=== PATIENT | female | born 1955 | race Caucasian/White ===

== ENCOUNTER 2022-12-22 11:22 | Emergency (ER) | payer BC, SELFPAY ==
[2022-12-22 11:29] VITALS: BP 136/90; PULSE 76; RESP 12; TEMP 36.1; O2SAT 98
--- NOTE | 2022-12-22 11:39 | ED.EXTPRO ---
HPI - Extremity Problem General Chief complaint: Extremity Injury, Upper Stated complaint: left hand injury Time Seen by Provider: 12/22/22 11:30 Source: patient and RN notes reviewed Mode of arrival: ambulatory Limitations: no limitations History of Present Illness HPI Narrative: Patient states that she pushed herself off a chair last evening and had significant pain in her left thumb at the base in the area of her CMC joint. She says she has had pain in that joint for many years. She does knitting at home as a repetitive type movement. She denies any fever chills. She does have a history of gout but states the gout has always been in her great toe. Her GI doctor told her not to take NSAIDs on a regular basis. MD Complaint: extremity pain Onset (ago): day(s) (1) Pain Consistency: constant Location: right and upper extremity Quality: stabbing, aching and constant Radiation: none Relieving factors: nothing Exacerbating factors: range of motion and palpation Associated symptoms: denies other symptoms Related Data Home Medications Medication Instructions Recorded Confirmed amlodipine 2.5 mg tablet 2.5 mg PO DAILY 12/22/22 12/22/22 atorvastatin 10 mg tablet 10 mg PO DAILY 12/22/22 12/22/22 famotidine 40 mg tablet 40 mg PO DAILY 12/22/22 12/22/22 lisinopril 20 1 tablet PO DAILY 12/22/22 12/22/22 mg-hydrochlorothiazide 25 mg tablet mirabegron 50 mg tablet,extended 50 mg PO DAILY 12/22/22 12/22/22 release 24 hr (Myrbetriq) Allergies Allergy/AdvReac Type Severity Reaction Status Date / Time amoxicillin [From Augmentin] AdvReac Diarrhea Verified 12/22/22 11:36 clavulanic acid AdvReac Diarrhea Verified 12/22/22 11:36 [From Augmentin] Review of Systems Review of Systems: All systems reviewed & are unremarkable except as noted in HPI and below PMFSH Past Medical History Medical History (Updated 12/22/22 @ 12:27 by Osvaldo Beard MD) GERD (gastroesophageal reflux disease) Hypertension Seasonal allergies Surgical History Surgical History (Updated 12/22/22 @ 12:01 by Osvaldo Beard MD) History of section History of total abdominal hysterectomy Social History Social History (Updated 12/22/22 @ 12:01 by Osvaldo Beard MD) Smoking status: Never smoker Alcohol intake: current Alcohol use details: occasional Exam Const: General: healthy appearing, no acute distress and alert Nutritional Appearance: well nourished Orientation/consciousness: patient oriented x3 Limitations: no limitations HENMT: Head: normal to inspection Ears: external ears normal Eyes: Conjunctivae: conjunctivae normal Pupils: Equal, round and reactive pupils present EOM: EOMs intact bilaterally Neck: Neck: normal visual inspection Resp: Effort & Inspection: normal respiratory effort Auscultation: clear to auscultation bilaterally Cardio: Rate: regular rate Rhythm: regular rhythm GI: GI Palp: Yes Soft to palpation and No Tenderness to palpation present (GI) Auscultation: normal bowel sounds Back/Spine/Pelvis: Cervical Spine: cervical ROM normal Thoracic/Lumbar Spine: thoraco-lumbar ROM normal Skin: General skin exam: normal color Rashes: no rashes Neuro: General: patient oriented x3, moves all extremities, no focal motor deficits and CN's II-XI intact bilaterally Speech: normal speech Gait exam (Neuro): Normal gait present Extrem: General: normal exam except as noted and no clubbing, cyanosis or edema Right upper extremity: Extremity exam: right hand abnormal to inspection joint swelling ( First CMC joint), neuromotor exam normal and tenderness of the thumb ( moderate tenderness CMC joint) Psych: Mental Status: mental status grossly normal Affect: normal affect Attitude: cooperative Course Vital Signs Vital signs: Vital Signs Temperature 36.1 C L 12/22/22 11:29 Pulse Rate 76 12/22/22 11:29 Respiratory Rate 12 12/22/22 11:29 Blood Pressure 136/90 12/22/22 11:29 Pulse Ox
[2022-12-22] MEDS: TRIAMCINOLONE ACET INJ 40 MG/ML VIAL I-ARTICULR (11:51)
[2022-12-22] MEDS: LIDOCAINE HCL 1% LOCAL INJ 10 ML VIAL INFILTRATE (11:52)
[2022-12-22 12:36] VITALS: BP 140/72; PULSE 73; RESP 20; TEMP 36.9; O2SAT 98
== END 2022-12-22 12:37 | disposition home or self-care (01) ==
PROVIDERS: Emergency Provider Emergency Medicine
DX: M19.042 Primary osteoarthritis, left hand (principal); I10 Essential (primary) hypertension
CPT/HCPCS: 99282; J3301